=== PATIENT | female | born 1980 | race Caucasian/White ===

== ENCOUNTER 2020-06-01 09:30 | Outpatient (CLI) | payer OTHER, SELFPAY ==
--- NOTE | ~2020-06-01 | MM_ITS ---
EXAMINATION: MM screening [facility] BI w valeriy HISTORY: Screening TECHNIQUE: Craniocaudal and mediolateral oblique 3-D tomosynthesis images were obtained and synthetic 2-D images were generated. CAD analysis was submitted and interpreted. COMPARISON: Comparison to multiple prior studies sequentially, with oldest reviewed study dated 11/2018. BREAST PARENCHYMAL COMPOSITION: There are scattered areas of fibroglandular density. FINDINGS: There is no evidence of suspicious mass, calcification, or architectural distortion to sugg est malignancy in either breast. There has been no suspicious interval change. IMPRESSION: 1. No mammographic evidence of malignancy. 2. Recommend routine screening mammography in one year. BI-RADS Category 1: Negative Reviewed, dictated and finalized at location A.
== END 2020-06-01 09:31 | disposition home or self-care (01) ==
LOC: ANHIMG 09:37
PROVIDERS: PCP Family Medicine
DX: Z12.31 Encounter for screening mammogram for malignant neoplasm of breast (principal)
CPT/HCPCS: 77063; 77067

== ENCOUNTER 2021-06-03 10:15 | Outpatient (CLI) | payer OTHER, SELFPAY ==
--- NOTE | ~2021-06-03 | MM_ITS ---
EXAMINATION: MM screening [facility] BI w valeriy HISTORY: Screening TECHNIQUE: Craniocaudal and mediolateral oblique 3-D tomosynthesis images were obtained and synthetic 2-D images were generated. CAD analysis was submitted and interpreted. COMPARISON: Comparison to multiple prior studies sequentially, with oldest reviewed study dated 11/2018. BREAST PARENCHYMAL COMPOSITION: Breast composed of scattered areas of fibroglandular density FINDINGS: There is no evidence of suspicious mass, calcification, or architectural distortion to sugg est malignancy in either breast. There has been no suspicious interval change. IMPRESSION: 1. No mammographic evidence of malignancy. 2. Recommend routine screening mammography in one year. BI-RADS Category 1: Negative Reviewed, dictated and finalized at location A.
== END 2021-06-03 10:16 | disposition home or self-care (01) ==
LOC: ANHIMG 10:17
PROVIDERS: PCP Family Medicine; Visit Provider Family Medicine
DX: Z12.31 Encounter for screening mammogram for malignant neoplasm of breast (principal)
CPT/HCPCS: 77063; 77067

== ENCOUNTER 2022-07-20 09:40 | Outpatient (CLI) | payer OTHER, SELFPAY ==
--- NOTE | ~2022-07-20 | MM_ITS ---
EXAMINATION: MM screening [facility] BI w valeriy HISTORY: Screening mammogram TECHNIQUE: Craniocaudal and mediolateral oblique 3-D tomosynthesis images were obtained and synthetic 2-D images were generated. CAD analysis was submitted and interpreted. COMPARISON: 06/03/2021, 06/01/2020, 05/24/2019 bilateral screening mammogram examinations BREAST PARENCHYMAL COMPOSITION: There are scattered areas of fibroglandular density. FINDINGS: There is no evidence of suspicious mass, calcification, or architectural distortion to sugg est malignancy in either breast. There has been no suspicious interval change. IMPRESSION: 1. No mammographic evidence of malignancy. 2. Recommend routine screening mammography in one year. BI-RADS Category 1: Negative Reviewed, dictated and finalized at location A.
== END 2022-07-20 09:41 | disposition home or self-care (01) ==
DX: Z12.31 Encounter for screening mammogram for malignant neoplasm of breast (principal)
CPT/HCPCS: 77063; 77067

== ENCOUNTER 2023-08-28 13:29 | Outpatient (CLI) | payer OTHER, SELFPAY ==
--- NOTE | ~2023-08-28 | MM_ITS ---
EXAMINATION: MM screening [facility] BI w valeriy HISTORY: Screening TECHNIQUE: Craniocaudal and mediolateral oblique 3-D tomosynthesis images were obtained and synthetic 2-D images were generated. CAD analysis was submitted and interpreted. COMPARISON: Comparison to multiple prior studies sequentially, with oldest reviewed study dated 11/2018. BREAST PARENCHYMAL COMPOSITION: Breast composed of scattered areas of fibroglandular density FINDINGS: There is no evidence of suspicious mass, calcification, or architectural distortion to sugg est malignancy in either breast. There has been no suspicious interval change. IMPRESSION: 1. No mammographic evidence of malignancy. 2. Recommend routine screening mammography in one year. BI-RADS Category 1: Negative Reviewed, dictated and finalized at location A. 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
== END 2023-08-28 13:30 | disposition home or self-care (01) ==
LOC: ANHIMG 13:31
PROVIDERS: PCP Family Medicine; Visit Provider Family Medicine
DX: Z12.31 Encounter for screening mammogram for malignant neoplasm of breast (principal)
CPT/HCPCS: 77063; 77067

== ENCOUNTER 2024-10-03 14:31 | Outpatient (CLI) | payer OTHER, SELFPAY ==
--- NOTE | ~2024-10-03 | MM_ITS ---
EXAMINATION: MM screening [facility] BI w valeriy HISTORY: Screening TECHNIQUE: Craniocaudal and mediolateral oblique 3-D tomosynthesis images were obtained and synthetic 2-D images were generated. CAD analysis was submitted and interpreted. COMPARISON: Comparison to multiple prior studies sequentially, with oldest reviewed study dated 11/2018. BREAST PARENCHYMAL COMPOSITION: Not dense: There are scattered areas of fibroglandular density. FINDINGS: There is no evidence of suspicious mass, calcification, or architectural distortion to sugg est malignancy in either breast. There has been no suspicious interval change. IMPRESSION: 1. No mammographic evidence of malignancy. 2. Recommend routine screening mammography in one year. BI-RADS Category 1: Negative Reviewed, dictated and finalized at location B. 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
== END 2024-10-03 14:32 | disposition home or self-care (01) ==
PROVIDERS: PCP Family Medicine
DX: Z12.31 Encounter for screening mammogram for malignant neoplasm of breast (principal)
CPT/HCPCS: 77063; 77067

== ENCOUNTER 2025-10-07 08:51 | Outpatient (CLI) | payer MEDICAID, SELFPAY ==
--- NOTE | ~2025-10-07 | MM_ITS ---
EXAMINATION: MM screening liana BI w valeriy HISTORY: Screening TECHNIQUE: Craniocaudal and mediolateral oblique 3-D tomosynthesis images were obtained and synthetic 2-D images were generated. CAD analysis was submitted and interpreted. COMPARISON: Comparison to multiple prior studies sequentially, with oldest reviewed study dated , 06/01/2020 BREAST PARENCHYMAL COMPOSITION: Not Dense: There are scattered areas of fibroglandular density. FINDINGS: There is no evidence of suspicious mass, calcification, or architectural distortion to suggest malignancy in either breast. IMPRESSION: 1. No mammographic evidence of malignancy. 2. Recommend routine screening mammography in one year. BI-RADS Category 1: Negative Reviewed, dictated and finalized at location A. ICAL INFORMATICS PHYSICIAN
--- OUTSIDE RECORDS SUMMARY | 2025-10-07 09:35 | XMS_ITS | Clinical Summary ---
Author Organization [facility] [employer] Address [address] [place] [address] Care Team Providers Care Felt Hat Flanging Operator Name Role Phone Violeta Branham MD Primary Care Provider Source Comments [facility] [facility]non-owned Affiliates and Associated Physician Practices is amultiple site organization consisting of ambulatory clinics and hospital sitesin [place], [place] and [place]. This disclosure is being madepursuant to the Care Everywhere program and may not contain all information available regarding this patient. Last updated 18.[facility] [employer] Medications * Be aware that medications may not be up to date on this document. Alwaysverify current medications with the patient. ibuprofen (MOTRIN) 800 MG tablet Take 800 mg by mouth q6h PRN (Pain). 09/04/2016 Active cyclobenzaprine (FLEXERIL) 10 MG tablet Take 10 mg by mouth 3X/day PRN (Muscle Spasms). 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 Sexual Orientation Straight 11/01/2021 9: 38 AM ROUNDHOUSE FIRER/FIREMAN Last Filed Vital Signs Vital Sign Reading Time Taken Comments Blood Pressure 120/87 12/26/2016 9:58 AM ROUNDHOUSE FIRER/FIREMAN Pulse 73 12/26/2016 9:58 AM ROUNDHOUSE FIRER/FIREMAN Temperature 36.8 C (98.2 F) 09/04/2016 10:11 AM ROUNDHOUSE FIRER/FIREMAN Respiratory Rate 18 09/04/2016 10:11 AM ROUNDHOUSE FIRER/FIREMAN Oxygen Saturation 100% 09/04/2016 10:11 AM ROUNDHOUSE FIRER/FIREMAN Inhaled Oxygen Concentration - - Weight 90.7 kg (200 lb) 12/26/2016 9:58 AM ROUNDHOUSE FIRER/FIREMAN Height 157.5 cm (5' 2) 12/26/2016 9:58 AM ROUNDHOUSE FIRER/FIREMAN Body Mass Index 36.58 12/26/2016 9:58 AM ROUNDHOUSE FIRER/FIREMAN Plan of Treatment Health Maintenance Due Date Last Done Comments COLOGUARD (AGES 45-75) - COL ON CA SCREENING 1978 COLON MONITORING 1978 COLONOSCOPY - COLON CA SCREENING 1978 CT COLONOGRAPHY - COLON CA SCREENING 1978 Colorectal Cancer Screening 1978 FIT - COLON CA SCREENING 1978 FLEX SIG - COLON CA SCREENING 1978 LIPID TESTING 1978 MAMMOGRAM 1978 HIV SCREENING 1993 HEPATITIS C SCREENING 05/07/1996 DTAP/TDAP/TD VACCINES (1 - Tdap) 1997 HEPATITIS B VACCINE (1 of 3 - 19+ 3-dose series) 1997 DEPRESSION SCREENING 10/23/2024 COVID-19 VACCINE (1 - 2024-2 6 season) 2025 INFLUENZA VACCINE (#1) 2025 ZOSTER VACCINE (1 of 2) 2028 HIB VACCINE Aged Out No longer eligi ble based on patient's age to complete this topic HPV VACCINE Aged Out No longer eligi ble based on patient's age to complete this topic MENINGOCOCCAL (Group B) VACC INE SHARED DECISION-MAKING Aged Out No longer eligibl e based on patient's age to complete this topic MENINGOCOCCAL GROUPS A/C/Y/W VACCINE Aged Out No longer eligible b ased on patient's age to complete this topic PNEUMOCOCCAL VACCINE Aged Out No long er eligible based on patient's age to complete this topic Care Teams Felt Hat Flanging Operator Relationship Specialty Start Date End Date Violeta Branahm MD [address] [facility] [address] [place] [address] PCP - General 09/04/16
--- OUTSIDE RECORDS SUMMARY | 2025-10-07 09:35 | XMS_ITS | Encounter Summary ---
Author Organization [facility] Care Team Providers Care Coremaker Bench Name Role Phone Maryam Uribe MD Primary Care Provider [phone] Shraddha Bo Primary Care Provider + Kishor Padgett MD Primary Care Provider [phone] Janet Khan NP Primary Care Provider [phone] Encounter Details Date Type Department Care Team (Latest Contact Info) Description 04/07/2017 Orders Only [facility] CLINCONV ProviderChristiano MD [address] [place] [id number] Social History Tobacco Use Types Packs/Day Years Used Date Smoking Tobacco: Never Assessed Comments Unknown Sex and Gender Information Value Date Recorded Sex Assigned at Not on file 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
--- OUTSIDE RECORDS SUMMARY | 2025-10-07 09:35 | XMS_ITS | Clinical Summary ---
Author Organization [facility] Address [address] [place] [address] Care Team Providers Care Or Manager Name Role Phone Unavailable Primary Care Provider Unavailabl e Allergies No known active allergies Medications rizatriptan (MAXALT) 10 mg tabletIndications :Migraine Take 1 tablet (10 mg total) by mouth once as needed for migraine May repeat in 2 hours if unresolved. Do not exceed 30 mg in 24 hours. 9 tablet 1 10/05/20 23 Active topiramate (TOPAMAX) 50 mg tabletIndications :Migraine without aura and without status migrainosus, not intractable,Class 3 severe obesity due to excess calories without serious comorbidity with body mass index (BMI) of 40.0 to 44.9 in adult Take 1 tablet (50 mg total) by mouth 2 (two) times a day 60 tablet 11 09/26/20 24 Active promethazine (PHENERGAN) 1.25 mg/mL syrupIndications: Chronic cough Take 10 mL (12.5 mg total) by mouth 4 (four) times a day as needed for nausea or vomiting 120 mL 01/23/20 25 Active atorvastatin (LIPITOR) 10 mg tablet TAKE 1 TABLET(10 MG) BY MOUTH DAILY. 90 tablet 3 03/19/20 25 Active ondansetron ODT (ZOFRAN-ODT) 4 mg disintegrating tablet Take 1 tablet (4 mg total) by mouth every 8 (eight) hours as needed for nausea or vomiting 20 tablet 03/22/20 25 Active dicyclomine (BENTYL) 10 mg capsuleIndication s:Abdominal Pain with Cramps,Irritable Bowel Syndrome Take 1 capsule (10 mg total) by mouth 4 (four) times a day before meals and nightly for 20 doses 20 capsule 03/22/[address] (VOLTAREN) 75 mg EC tablet Take 1 tablet (75 mg total) by mouth 2 (two) times a day 03/03/20 25 Active phentermine (ADIPEX-P) 37.5 mg tabletIndications :Class 3 severe obesity due to excess calories without serious comorbidity with body mass index (BMI) of 40.0 to 44.9 in adult TAKE 1 TABLET(37.5 MG) BY MOUTH DAILY BEFORE BREAKFAST 30 tablet 09/25/20 25 Active phentermine (ADIPEX-P) 37.5 mg tabletIndications :Class 3 severe obesity due to excess calories without serious comorbidity with body mass index (BMI) of 40.0 to 44.9 in adult Take 1 tablet (37.5 mg total) by mouth daily before breakfast 30 tablet 11/28/19 25 025 Discontinued Hospital, Clinic, or Other Facility Administered Medication Ordered Dose Route Frequency Start Date End Date Status etonogestreL (NEXPLANON) implant 68 mgIndications:Pregna ncy Contraception 68 mg subderm Continuous (implanted device) 02/10/2025 02/10/2028 Active Active Problems Problem Noted Date Diagnosed Date Plantar fasciitis 05/28/2025 Chronic pain of left knee 04/15/2025 Stage 2 chronic kidney disease 04/01/2025 Slow transit constipation 03/25/2025 Leukocytosis 03/25/2025 Pain of left heel 02/06/2025 Assessment & Plan (02/06/2025 11:08 AM CDT): Xray left foot shows no acute malalignment or bone abnormalities/no acute fractures. It does show degenerative changes in the ankle along with chronic cortical irregularity of the inside of the ankle. Would recommend physical therapy and continued rest, ice, elevation, compression, and weight loss. May use Tylenol/Motrin for pain relief. Chronic cough 01/22/2025 Enlarged tonsils 02/06/2024 Assessment & Plan (02/06/2024 9:37 AM CDT): HPI: Condition is not at/near goal. Patient has always had issues with enlarged tonsils - she has seen ENT in the past where it was recommended that she get her tonsils removed but she never did due to current life stressors. She states she can feel her right tonsil touch when she swallows and sometimes has difficulty swallowing food and drink. Denies any fevers, sore throat, or cough. A&P: Referral has been placed for patient to see ENT. Precordial chest pain 11/15/2023 Abnormal EKG 11/15/2023 Syncope and collapse 11/15/2023 Fever 10/19/2023 Bronchitis 10/19/2023 Pharyngitis 10/19/2023 Nonvenomous insect bite of foot 10/13/2023 NOMI (generalized anxiety disorder) 10/04/2023 Assessment & Plan (09/26/2024 11:20 AM IS CONSULTANT): Patient reiterated no suicidal thoughts at this time; take medication as directed; contact 911 and go to the ER if becomes suicidal; discussed side effects of medication with patient; encouraged healthy diet and exericise; encouraged patient to see a counselor. HPI: Condition is stable. Doing well managing without medication. A&P:Will continue to monitor. Assessment & Plan (10/05/2023 10:48 AM IS CONSULTANT): Patient reiterated no suicidal thoughts at this time; take medication as directed; contact 911 and go to the ER if becomes suicidal; discussed side effects of medication with patient; encouraged healthy diet and exericise; encouraged patient to see a counselor. HPI: Condition is stable A&P: Discussed/ordered labs, encouraged healthy, low carbohydrate lifestyle and at least 150min/week of exercise. Will continue to monitor. Migraine without status migrainosus, not intract able 10/04/2023 Assessment & Plan (09/26/2024 11:21 AM IS CONSULTANT): HPI: Condition is stable. Few migraines recently. States she may have used the Maxalt once in the past month. Has been out of [email or web address] due to insurance problem that is now corrected - has not taken in 2 months. A&P: Restart Topiramate 25mg daily x 1 week, then 50 mg daily thereafter. Continue Rizatriptan 10 mg as needed for migraines. Discussed keeping headache diary. Discussed avoiding all caffeine: no soda, tea, coffee, chocolate; no wine; no sharp cheeses; no processed meats like hot dogs or bologna; no MSG as found in danish food; no more than 1/2 banana a day; no artificial sweeteners; fresh bread (less than 24 hours old). Avoid using tylenol, ibuprofen or aleve more than twice a week or else you can cause medication overuse/rebound headaches. You may be causing the headaches with the medications you are taking to get rid of them. Be sure to push lots of water as dehydration is a big cause of headaches. Assessment & Plan (06/13/2024 12:44 PM CDT): HPI: Condition is stable. Has had very few migraines recently. States she may have used the Maxalt once in the past month. A&P: Continue on topiramate 25mg twice daily and rizatriptan 10 mg as needed for migraines. Discussed keeping headache diary. Discussed avoiding all caffeine: no soda, tea, coffee, chocolate; no wine; no sharp cheeses; no processed meats like hot dogs or bologna; no MSG as found in danish food; no more than 1/2 banana a day; no artificial sweeteners; fresh bread (less than 24 hours old). Avoid using tylenol, ibuprofen or aleve more than twice a week or else you can cause medication overuse/rebound headaches. You may be causing the headaches with the medications you are taking to get rid of them. Be sure to push lots of water as dehydration is a big cause of headaches. Assessment & Plan (04/11/2024 11:02 AM CDT): HPI: Condition is stable. A&P: Continue on topiramate 25mg twice daily and rizatriptan 10 mg as needed for migraines. Discussed keeping headache diary. Discussed avoiding all caffeine: no soda, tea, coffee, chocolate; no wine; no sharp cheeses; no processed meats like hot dogs or bologna; no MSG as found in danish food; no more than 1/2 banana a day; no artificial sweeteners; fresh bread (less than 24 hours old). Avoid using tylenol, ibuprofen or aleve more than twice a week or else you can cause medication overuse/rebound headaches. You may be causing the headaches with the medications you are taking to get rid of them. Be sure to push lots of water as dehydration is a big cause of headaches. Assessment & Plan (02/06/2024 9:15 AM CDT): HPI: Condition is stable. A&P: Continue on rizatriptan 10 mg tablet as needed for migraines. Discussed keeping headache diary. Discussed avoiding all caffeine: no soda, tea, coffee, chocolate; no wine; no sharp cheeses; no processed meats like hot dogs or bologna; no MSG as found in danish food; no more than 1/2 banana a day; no artificial sweeteners; fresh bread (less than 24 hours old). Avoid using tylenol, ibuprofen or aleve more than twice a week or else you can cause medication overuse/rebound headaches. You may be causing the headaches with the medications you are taking to get rid of them. Be sure to push lots of water as dehydration is a big cause of headaches. Assessment & Plan (10/04/2023 8:40 PM IS CONSULTANT): HPI: Condition is stable A&P: Discussed/ordered labs, encouraged healthy, low carbohydrate lifestyle and at least 150min/week of exercise, continue on rizatriptan 10 mg tablet as needed for migraines. Discussed keeping headache diary. Discussed avoiding all caffeine: no soda, tea, coffee, chocolate; no wine; no sharp cheeses; no processed meats like hot dogs or bologna; no MSG as found in danish food; no more than 1/2 banana a day; no artificial sweeteners; fresh bread (less than 24 hours old). Avoid using tylenol, ibuprofen or aleve more than twice a week or else you can cause medication overuse/rebound headaches. You may be causing the headaches with the medications you are taking to get rid of them. Be sure to push lots of water as dehydration is a big cause of headaches. Class 3 severe obesity due t o excess calories without serious comorbidity with body mass index (BMI) of 40.0 to 44.9 in adult 04/20/2022 Assessment & Plan (01/22/2025 11:09 AM CDT): CHIP 5 completed today. Assessment & Plan (01/08/2025 11:52 AM CDT): CHIP 4 completed today. Assessment & Plan (11/28/2024 10:05 AM IS CONSULTANT): Chip 03 Patient has lost 20lb since starting Phentermine on 01/08/2024. She has been cutting back on regular soda and increasing her activity including walking on the treadmill. She has now noticed plateau with weight loss. Discontinued Phentermine 06/13/2024 for drug holiday. Will restart on Phentermine today (11/28/2024) per patient request. She will continue to do CHIP. Will discontinue around 02/25/2025. Visit began at 0916 Visit ended at 0950 Pre/post charting time - 10 minutes My total encounter time on 11/28/2024 was 44 minutes which was spent in the activities documented in the note. This includes time spent prior to the visit and after the visit in direct care of the patient. This time does not include time spent in any separately reportable services. Start Date: 11/07/2024 Start weight: 237 lb Weight today: 239 lb Total weight loss: + 2 lb Wt Readings from Last 3 Encounters: 11/28/24 108.4 kg (239 lb) 11/14/24 107.9 kg (237 lb 12.8 oz) 11/07/24 107.9 kg (237 lb 14.4 oz) Patient presents for weight loss education. Today we discussed basic habits of health, primary & secondary choices, structural tension, how habits are formed, cravings, and stopping bad habit patterns. Last visit goal: Start recording food diary up to 3 of the next 7 days using my fitness pal/note book focusing on protein and calorie goal. Goal was - MET Goal for next session:Continue tracking, restart Phentermine. Gratefulness: That she is still here today! TDEE calculated today: Total Daily Calories: 1500 calories/day Total Daily Protein: 150 grams protein/day Increase protein in diet. Examples: 1 whole egg and 2 servings of egg whites, protein supplement shakes, [employer] core power elite shake has 42 g of protein, the plan core power shakes have 26 g of protein, protein bars, protein:ratio yogurt, oikos pro yogur, or oikos triple zero yogurt with a scoop of protein powder, increased meat intake, low fat cottage cheese, collagen peptides-these can sometimes be used as a creamer in your coffee The 5 A's framework was used throughout the session BMI Follow-up includes: nutrition counseling, exercise counseling, and education provided. Assessment & Plan (11/14/2024 11:35 AM IS CONSULTANT): Akbar 02 Patient has lost 20lb since starting Phentermine on 01/08/2024. She has been cutting back on regular soda and increasing her activity including walking on the treadmill. She has now noticed plateau with weight loss. Discontinued Phentermine 06/13/2024 for drug holiday. Visit began at 1046 Visit ended at 1125 Pre/post charting time - 5 minutes My total encounter time on 11/14/2024 was 44 minutes which was spent in the activities documented in the note. This includes time spent prior to the visit and after the visit in direct care of the patient. This time does not include time spent in any separately reportable services. Start Date: 11/07/2024 Start weight: 237 lb Weight today: 237 lb Total weight loss: - 0 lb Wt Readings from Last 3 Encounters: 11/14/24 107.9 kg (237 lb 12.8 oz) 11/07/24 107.9 kg (237 lb 14.4 oz) 09/26/24 108.2 kg (238 lb 9.6 oz) Pt presents for weight loss education. Today we reviewed their health assessment and I gave suggestions and encouragement to improve. We discussed eating healthy basics- what is a calorie, metabolism, glucose/insulin response to eating, low glycemic eating, create your plate, non-starchy veggies, grains/starches, proteins/dairy, and foods to limit. We discussed 3 different diet plans including Weight Watchers, calorie counting or meal replacements. They will consider which plan will work best for them and let me know in the next week. TDEE calculated today: Total Daily Calories: 1500 calories/day Total Daily Protein: 150 grams protein/day Increase protein in diet. Examples: 1 whole egg and 2 servings of egg whites, protein supplement shakes, [employer] core power elite shake has 42 g of protein, the plan core power shakes have 26 g of protein, protein bars, protein:ratio yogurt, oikos pro yogur, or oikos triple zero yogurt with a scoop of protein powder, increased meat intake, low fat cottage cheese, collagen peptides-these can sometimes be used as a creamer in your coffee Last visit goal: High-protein breakfast within 2 hours of waking up prior to caffeine source (regular mountain dew). Attempt to try mountain dew 0 sugar. Goal was - MET Goal for next session: Start recording food diary up to 3 of the next 7 days using my fitness pal/note book focusing on protein and calorie goal. Gratefulness: Family and friends! The 5 A's framework was used throughout the session BMI Follow-up includes:nutrition counseling, exercise counseling, and education provided Assessment & Plan (11/07/2024 1:08 PM IS CONSULTANT): Chip 01 Patient has lost 20lb since starting Phentermine on 01/08/2024. She has been cutting back on regular soda and increasing her activity including walking on the treadmill. She has now noticed plateau with weight loss. Discontinued Phentermine 06/13/2024 for drug holiday. Visit began at 1234 Visit ended at 1303 Pre/post charting time - 10 minutes My total encounter time on 11/07/2024 was 41 minutes which was spent in the activities documented in the note. This includes time spent prior to the visit and after the visit in direct care of the patient. This time does not include time spent in any separately reportable services. Start Date: 11/07/2024 Start weight: 237 lb Pt presents for weight loss education. Today we discussed obesity statistics, causes, changes in food production, complications, brief goal setting, motivation, and created a structural tension chart. We discussed the BASIC lifestyle and they were given mealplans and snack ideas to use until their next visit. Their why: To be around for her family and grand baby, feel better/more energy, more confidence, healthier Motivation Score: 5 Goal for next session: High-protein breakfast within 2 hours of waking up prior to caffeine source (regular mountain dew). Attempt to try mountain dew 0 sugar. Increase protein in diet. Examples: 1 whole egg and 2 servings of egg whites, protein supplement shakes, [facility] core power elite shake has 42 g of protein, the plan core power shakes have 26 g of protein, protein bars, protein:ratio yogurt, oikos pro yogur, or oikos triple zero yogurt with a scoop of protein powder, increased meat intake, low fat cottage cheese, collagen peptides-these can sometimes be used as a creamer in your coffee The 5 A's framework was used throughout the session BMI Follow-up includes: nutrition counseling, exercise counseling, and education provided. Assessment & Plan (09/26/2024 11:08 AM IS CONSULTANT): HPI: Condition is improving, but not at goal. Goal BMI <30. Patient has lost 20lb since starting Phentermine on 01/08/2024. She has been cutting back on regular soda and increasing her activity including walking on the treadmill. She has now noticed plateau with weight loss. Discontinued Phentermine 06/13/2024 for drug holiday. A&P: Healthy, high-protein, lower carbohydrate, lower fat lifestyle and exercise for 150min/week recommended. Recommend and encourage her to do CHIP weight loss program with me and encouraged her to call and schedule apt. Assessment & Plan (06/13/2024 12:44 PM CDT): HPI: Condition is improving, but not at goal. Goal BMI <30. Patient has lost 20lb since starting on 01/08/2024. She has been cutting back on regular soda and increasing her activity including walking on the treadmill. She has now noticed plateau with weight loss. A&P: Healthy, high-protein, lower carbohydrate, lower fat lifestyle and exercise for 150min/week recommended. Will discontinue phentermine for drug holiday. Recommend and encourage her to do CHIP weight loss program with me and encouraged her to call and schedule apt. Assessment & Plan (04/11/2024 11:01 AM CDT): HPI: Condition is improving, but not at goal. Goal BMI <30. Patient has lost 20 lb since starting on 01/08/2024. She has been cutting back on regular soda and increasing her activity including walking on the treadmill. Today kumari 3 months on medication - she does report that she was off of it for over 2 weeks for her colonoscopy. Wt Readings from Last 48 Encounters: 04/11/24 102.1 kg (225 lb) 03/11/24 103.1 kg (227 lb 6.4 oz) 02/16/24 104.8 kg (231 lb) 02/06/24 106.5 kg (234 lb 12.8 oz) 01/08/24 111.5 kg (245 lb 14.4 oz) 11/15/23 110.7 kg (244 lb) 10/05/23 110.5 kg (243 lb 9.6 oz) 06/25/23 109.1 kg (240 lb 8.4 oz) 05/12/23 109.1 kg (240 lb 9.6 oz) 05/08/23 99.8 kg (220 lb) 02/14/23 109.3 kg (241 lb) 09/20/22 106.2 kg (234 lb 3.2 oz) 04/20/22 103.9 kg (229 lb) 04/12/22 103.9 kg (229 lb 0.9 oz) 02/15/22 99.8 kg (220 lb 0.3 oz) 11/15/21 97.1 kg (214 lb) 09/23/21 97.5 kg (215 lb) 09/20/21 97.2 kg (214 lb 3.2 oz) 07/29/21 95.9 kg (211 lb 6.4 oz) 06/24/21 95.8 kg (211 lb 1.6 oz) 05/27/21 95.8 kg (211 lb 4.8 oz) 05/07/21 92.3 kg (203 lb 7.8 oz) 03/18/21 94.6 kg (208 lb 9.6 oz) 09/24/20 89.2 kg (196 lb 9.6 oz) 06/18/20 87.2 kg (192 lb 3.2 oz) 03/25/20 89.4 kg (197 lb 3.2 oz) 05/22/17 90.7 kg (200 lb) 05/15/17 90.7 kg (200 lb) 05/08/17 90.7 kg (200 lb) 05/03/17 90.7 kg (200 lb) 05/01/17 90.7 kg (200 lb) 11/14/16 90.7 kg (200 lb) A&P: Healthy, high-protein, lower carbohydrate, lower fat lifestyle and exercise for 150min/week recommended. Patient continue phentermine 37.5 mg once daily for 1 more month. Will follow up in 1 month via telemed. Assessment & Plan (03/11/2024 8:44 AM CDT): HPI: Condition is improving, but not at goal. Goal BMI <30. Patient has lost 18 lb since starting on 01/08/2024. She has been cutting back on regular soda and increasing her activity including walking on the treadmill. Wt Readings from Last 48 Encounters: 03/11/24 103.1 kg (227 lb 6.4 oz) 02/16/24 104.8 kg (231 lb) 02/06/24 106.5 kg (234 lb 12.8 oz) 01/08/24 111.5 kg (245 lb 14.4 oz) 11/15/23 110.7 kg (244 lb) 10/05/23 110.5 kg (243 lb 9.6 oz) 06/25/23 109.1 kg (240 lb 8.4 oz) 05/12/23 109.1 kg (240 lb 9.6 oz) 05/08/23 99.8 kg (220 lb) 02/14/23 109.3 kg (241 lb) 09/20/22 106.2 kg (234 lb 3.2 oz) 04/20/22 103.9 kg (229 lb) 04/12/22 103.9 kg (229 lb 0.9 oz) 02/15/22 99.8 kg (220 lb 0.3 oz) 11/15/21 97.1 kg (214 lb) 09/23/21 97.5 kg (215 lb) 09/20/21 97.2 kg (214 lb 3.2 oz) 07/29/21 95.9 kg (211 lb 6.4 oz) 06/24/21 95.8 kg (211 lb 1.6 oz) 05/27/21 95.8 kg (211 lb 4.8 oz) 05/07/21 92.3 kg (203 lb 7.8 oz) 03/18/21 94.6 kg (208 lb 9.6 oz) 09/24/20 89.2 kg (196 lb 9.6 oz) 06/18/20 87.2 kg (192 lb 3.2 oz) 03/25/20 89.4 kg (197 lb 3.2 oz) 05/22/17 90.7 kg (200 lb) 05/15/17 90.7 kg (200 lb) 05/08/17 90.7 kg (200 lb) 05/03/17 90.7 kg (200 lb) 05/01/17 90.7 kg (200 lb) 11/14/16 90.7 kg (200 lb) A&P: Healthy, high-protein, lower carbohydrate, lower fat lifestyle and exercise for 150min/week recommended. Continue phentermine 37.5 mg once daily and topiramate 25 mg tablet twice daily. We will follow up in 1 month via telemedicine to check in on weight loss in progress at the three-month mary. We prescribed Phentermine today. This medication may cause anxiety, palpitations, dry mouth, dizziness, jitteriness, or insomnia. It could cause dependence if abused. Be sure to take it early in the day. If your blood pressure becomes elevated or you reach a BMI of 21, it will be discontinued. Do not share your medication with anyone else or combine with alcohol. We do require you come in monthly for weight loss visits with a log of your eating and exercise on most days. You can log on [employer], another [employer], or on paper. Assessment & Plan (02/06/2024 9:19 AM CDT): HPI: Condition is improving, but not at goal. Goal BMI <30. Patient has lost 11 lb since being on phentermine. Patient has been cutting back on regular soda and increasing water. A&P: Healthy, high-protein, lower carbohydrate, lower fat lifestyle and exercise for 150min/week recommended. Continue phentermine 37.5 mg once daily and topiramate 25 mg tablet twice daily. We prescribed Phentermine today. This medication may cause anxiety, palpitations, dry mouth, dizziness, jitteriness, or insomnia. It could cause dependence if abused. Be sure to take it early in the day. If your blood pressure becomes elevated or you reach a BMI of 21, it will be discontinued. Do not share your medication with anyone else or combine with alcohol. We do require you come in monthly for weight loss visits with a log of your eating and exercise on most days. You can log on [employer], another [employer], or on paper. Assessment & Plan (01/08/2024 9:59 AM CDT): HPI: Condition is stable. Goal BMI <30. Patient reports that she is interested in trying to lose weight and states that a couple years ago she had been on phentermine which helped her lose 20+ lb. A&P: Healthy, high-protein, lower carbohydrate, lower fat lifestyle and exercise for 150min/week recommended. We will send in phentermine 37.5 mg to take once daily and topiramate 25 mg tablet twice daily. We prescribed Phentermine today. This medication may cause anxiety, palpitations, dry mouth, dizziness, jitteriness, or insomnia. It could cause dependence if abused. Be sure to take it early in the day. If your blood pressure becomes elevated or you reach a BMI of 21, it will be discontinued. Do not share your medication with anyone else or combine with alcohol. We do require you come in monthly for weight loss visits with a log of your eating and exercise on most days. You can log on [employer], another [employer], or on paper. Assessment & Plan (10/04/2023 8:34 PM IS CONSULTANT): HPI: Condition is not at/near goal goal BMI <30 A&P: Healthy, high-protein, lower carbohydrate, lower fat lifestyle and exercise for 150min/week recommended. Assessment & Plan (09/20/2022 9:35 AM IS CONSULTANT): Working on weight loss Assessment & Plan (04/20/2022 8:41 AM CDT): Restart phentermine Mixed hyperlipidemia 03/25/2020 Assessment & Plan (09/26/2024 11:09 AM IS CONSULTANT): HPI: Condition is improving. Started Atorvastatin 10 mg 10/04/2023. Lab Results Component Value Date TRIG 79 04/20/2024 TRIG 96 12/11/2023 HDL 50 04/20/2024 HDL 48 12/11/2023 LDLCALC 101 04/20/2024 LDLCALC 100 12/11/2023 NONHDLCHOL 117 04/20/2024 NONHDLCHOL 119 12/11/2023 A&P: Discussed/ordered labs. Recommend low-fat diet & increased activity. Continue Atorvastatin 10 mg nightly. Assessment & Plan (04/11/2024 10:40 AM CDT): HPI: Condition is improving. Started patient on atorvastatin 10 mg on 10/04/2023. Lab Results Component Value Date TRIG 96 12/11/2023 TRIG 129 09/25/2023 HDL 48 12/11/2023 HDL 54 09/25/2023 LDLCALC 100 12/11/2023 LDLCALC 132 (H) 09/25/2023 NONHDLCHOL 119 12/11/2023 NONHDLCHOL 158 09/25/2023 A&P: Discussed/ordered labs. Recommend low-fat diet & increased activity. Continue on atorvastatin 10 mg nightly. Assessment & Plan (02/06/2024 9:16 AM CDT): HPI: Condition is improving. Have started patient on atorvastatin 10 mg daily on 10/04/2023. Lab Results Component Value Date TRIG 96 12/11/2023 TRIG 129 09/25/2023 HDL 48 12/11/2023 HDL 54 09/25/2023 LDLCALC 100 12/11/2023 LDLCALC 132 (H) 09/25/2023 NONHDLCHOL 119 12/11/2023 NONHDLCHOL 158 09/25/2023 A&P: Discussed/ordered labs. Recommend low-fat diet & increased activity. Continue on atorvastatin 10 mg daily. Assessment & Plan (10/04/2023 8:38 PM IS CONSULTANT): HPI: Condition is not at/near goal. Last lipid panel reviewed 09/25/2023: Triglycerides (fatty chol) normal <150, your results 129 HDL (good chol) normal >45 male and >55 female, your results 54 LDL (bad chol) normal <100, your results 132 non-HDL (risk factor) normal <100, your results 158 A&P: Discussed/ordered labs, encouraged healthy, low carbohydrate lifestyle and at least 150min/week of exercise. Please begin taking atorvastatin 10 mg tablet once daily. Repeat lipid panel ordered for 6 months. Assessment & Plan (09/20/2021 9:57 AM IS CONSULTANT): Low ASCVD risk score - discussed diet/exercise, weight loss Assessment & Plan (03/18/2021 1:37 PM CDT): Stable, no changes. Continue current regimen with diet/exercise Repeat labs 6 months Assessment & Plan (03/25/2020 11:33 AM CDT): Repeat labs Resolved Problems Problem Noted Date Diagnosed Date Resolved Date Acute pain of both wrists 12/12/2022 Abnormal weight gain 07/29/2021 023 Assessment & Plan (07/29/2021 11:58 AM CDT): Overall Condition Chronic Condition: Uncontrolled. Treatment: Recommended Therapeutic Lifestyle Modification and Medication Changes: Increase phentermine twice a day. Follow up in 3 months Right forearm pain 06/02/2021 Overview (06/02/2021): Swelling and pain with no injury. Xrays reviewed. Refer to ortho Lateral epicondylitis of right elbow 06/02/2021 10/04/2023 Class 2 obesity due to exces s calories without serious comorbidity with body mass index (BMI) of 39.0 to 39.9 in adult 03/25/2020 Assessment & Plan (09/20/2021 9:57 AM IS CONSULTANT): On phentermine per weight loss specialist Assessment & Plan (03/25/2020 9:40 AM CDT): BMI Follow-up includes: nutrition counseling, exercise counseling and education provided. Seeing specialist - on meds Immunizations Immunization Administration Dates Next Due Influenza, Unspecified 06/23/2024(Deferr ed: Patient Refused),06/23/2024(Deferred: Patient decision),06/23/2024(Deferred: Patient decision),01/08/2024(Deferred: Patient decision),06/23/2023,09/20/2022(Deferre d: Patient Refused),09/20/2021(Deferred: Patient Refused),09/24/2020(Deferred: Patient Refused),07/23/2019(Deferred: Patient Refused) Moderna SARS-CoV-2 Monovalen t Vaccination (12+ YRS) 03/02/2021,02/02/2021 Tdap 07/25/2019 Surgical History Surgery Date Site/Laterality Comments CARPAL TUNNEL RELEASE 10/23/2017 - 10/22/2018 Medical History Medical History Date Comments Abnormal Pap smear of cervix Chest pain Hyperlipidemia Abnormal EKG Migraines Family History Medical History Relation Name Comments Liver disease Father Cancer Maternal Grandmother Allie bang Hyperlipidemia Maternal Grandmother Allie bang Hypertension Maternal Grandmother Allie bang brain tumor Maternal Grandmother Allie bang No Known Problems Mother Stroke Mother's Sister Elenita pino No Known Problems Sister Breast cancer Neg Hx Ovarian cancer Neg Hx Uterine cancer Neg Hx Relation Name Status Comments Father Maternal Grandfather Maternal Grandmother Allie bang Mother Alive Mother's Sister Elenita pino Paternal Grandfather Paternal Grandmother Sister Alive Social History Tobacco Use Types Packs/Day Years Used Date Smoking Tobacco: Never Smokeless Tobacco: Never Alcohol Use Standard Drinks/Week Comments Yes 1 (1 standard drink = 0.6 oz pur e alcohol) occasionally AUDIT-C Answer Date Recorded Q1: How often do you have a drink containing alcohol? Never 11/28/2024 Q2: How many drinks containi ng alcohol do you have on a typical day when you are drinking? Patient does not drink Q3: How often do you have si x or more drinks on one occasion? Never 11/28/2024 PHQ-2 Answer Date Recorded PHQ-2 Total Score (If total score is 3 or more points, staff should administer the PHQ-9) 0 01/08/2025 Personal Safety Answer Date Recorded Have you ever been in or are you currently in a harmful physical or emotional relationship or is someone making you feel afraid or unsafe? Denies 03/22/2025 Comments No Sex and Gender Information Value Date Recorded Sex Assigned at Not on file Legal Sex Female 6:40 PM IS CONSULTANT Gender Identity Female 03/18/2021 9:27 AM CDT Sexual Orientation Straight 03/18/2021 9: 27 AM CDT Obstetrics History Para Term AB IAB SAB Ectopic Multiple Livin g Live Births 2 2 2 2 2 Date Outcome GA Total Labor Labor/2nd/3rd Weight Sex Type Anes PTL Leanna A1 A5 Name Clin 1997 Term F Vag-S pont Living 2009 Term M Vag-S pont Living Comments Last Filed Vital Signs Vital Sign Reading Time Taken Comments Blood Pressure 122/82 07/01/2025 8:54 AM CDT Pulse 86 07/01/2025 8:54 AM CDT Temperature 36.8 C (98.2 F) 03/22/2025 7:13 AM CDT Respiratory Rate 16 07/01/2025 8:54 AM CDT Oxygen Saturation 98% 07/01/2025 8:54 AM CDT Inhaled Oxygen Concentration - - Weight 104.1 kg (229 lb 6.4 oz) 07/01/2025 8:54 AM CDT Height 157.5 cm (5' 2.01) 07/01/2025 8:54 AM CD T Body Mass Index 41.95 07/01/2025 8:54 AM CDT Plan of Treatment Health Maintenance Due Date Last Done Comments Hepatitis B Screening 1996 Covid-19 Vaccine ( season) 2025 10/29/2021, 03/02/2021, 02/02/2021 Influenza Vaccine (#1) 2025 06/23/2023 Breast Cancer Screening-Mammogram 10/03/2025 10/03/2024, 08/28/2023, 07/20/2022, Additional history exists Cervical Cancer Screening 12/18/2025 12/18/2024, Depression Screening 01/08/2026 01/08/2025, 01/08/2024, 02/14/2023, Additional history exists Regular Well Visit/Exam 18-64 04/01/2026 04/01/2025, 12/18/2024, 01/08/2024, Additional history exists DTaP/Tdap/Td Vaccine (2 - Td or Tdap) 07/25/2029 07/25/2019 Colon Cancer Screening-Colonoscopy 04/08/2034 04/08/2024 Hepatitis C Screening Completed 03/22/2025 Pneumococcal vaccine <65 Aged Out No longer eligible based on patient's age to complete this topic Procedures Procedure Name Priority Date/Time Associated Diagnosis Comments HEPATITIS C ANTIBODY Routine 03/22/2025 7:10 AM CDT Encounter for hepatitis C screening test for low risk patient HIGH RISK HPV DNA DETECTION WITH GENOTYPING Routine 12/18/2024 9:35 AM IS CONSULTANT Well woman exam SCREENING MAMMOGRAM Schedule Routine, Read Routine (OP Routine) 10/03/2024 COLONOSCOPY Routine 04/08/2024 from Last 3 Months or Most Recently Relevant to Health Maintenance Results * Hepatitis C antibody Blood (03/22/2025 7:10 AM CDT) Hep C Ab Nonreactive Nonreactive Comment: Antibodies to HCV not detected. Does NOT exclude the possibility of recent exposure to HCV. Current interpretive data was last revised on 22 Interpretive Data Nonreactive: Antibodies to HCV not detected. Does NOT exclude the possibility of recent exposure to HCV. Equivocal: Equivocal for HCV antibodies. Supplemental molecular testing will be automatically performed to determine infection status in accordance with current CDC screening recommendations. Reactive: Positive for HCV antibodies. This may represent current or past HCV infection. Supplemental molecular testing will be automatically performed to determine current infection status in accordance with current CDC screening recommendations. Interpretive data was last revised on 2020. Blood 03/22/2025 7:10 AM CDT 03/22/2025 7:14 AM CDT us Janet Khan NP LAB MICROBIOLOGY - GENERAL OR DERABLES Final Result [facility] [address] [facility] Department [place] [address] * High Risk HPV DNA Detection with Genotyping (Molecular component) (12/18/2024 9:35 AM IS CONSULTANT) HPV HR 16 Not Detected Not Detected [facility] Comment:Testing performed by : [facility], [address] [facility], [id number] HPV HR 18 Not Detected Not Detected [facility] Comment:Testing performed by : [facility], [address] [facility], [id number] HPV HR Non 16/18 Not Detected Not Detected [facility] Comment: Interpretive Data Nucleic acid amplification for detection of high-risk Human Papilloma virus (HPV) is performed by the Alize Adiel 6800 HPV test. This assay specifically detects HPV-16 and HPV-18 genotypes. The following HPV genotypes are detected as high-risk HPV: HPV-31, 33, 35, ,39, 45, 51, 52, 56, 58, 59, 66, and 68. This assay has been approved by the [place] Food and Drug Administration for detection of HPV in cervical specimens collected by a physician using an endocervical brush/spatula or cervical broom and placed in the ThinPrep Pap Test PreservCyt collection containers. The performance characteristics of this test have been verified by the [facility] Molecular Infectious Disease laboratory. Correlate with separately reported cytology results, as applicable. Interpretive data last revised 23 Testing performed by: [facility], [address] [facility], [id number] Endocervical 12/18/2024 9:35 AM IS CONSULTANT 12/19/2024 10:32 AM IS CONSULTANT Narrative [facility] - 12/19/2024 8:46 PM IS CONSULTANT Clinical history and diagnosis->screening Testing type->Screening Last menstrual period (date if known)->implant Vivi Gerber MD LAB BODY FLUIDS AND STOOL S ORDERABLES Final Result [facility] Department [place] [address] [facility] * Screening Mammogram (10/03/2024) Anatomical Region Laterality Modality Breast N/A Mammography us Historical Provider IMG MAMMO PROCEDURES [facility] Result * Colonoscopy (04/08/2024) Anatomical Region Laterality Modality Other us Historical Provider ENDOSCOPY PROCEDURES [facility] Result from Last 3 Months or Most Recently Relevant to Health Maintenance Insurance [facility]
--- OUTSIDE RECORDS SUMMARY | 2025-10-07 09:35 | XMS_ITS | Encounter Summary ---
Author Organization [facility] Facility Care Team Providers Care [employer] Engineer Sergeant Name Role Phone Maryam Uribe MD Primary Care Provider [phone] Shraddha Bo Primary Care Provider + Kishor Padgett MD Primary Care Provider [phone] Janet Khan NP Primary Care Provider Encounter Details Date Type Department Care Team (Latest Contact Info) Description 08/11/2017 Orders Only [facility] CLINCONV ProviderChristiano MD [address] [place] [id number] Social History Tobacco Use Types Packs/Day Years Used Date Smoking Tobacco: Never Assessed Comments Unknown Sex and Gender Information Value Date Recorded Sex Assigned at Not on file Legal Sex Female 6:40 PM RESIDENTIAL ADVISOR Gender Identity Female 03/18/2021 9:27 AM CDT Sexual Orientation Straight 03/18/2021 9: 27 AM CDT documented as of this encounter Plan of Treatment Not on file documented as of this encounter Procedures Procedure Name Priority Date/Time Associated Diagnosis Comments PROCEDURE - RESULT 08/03/2017 12 :00 AM CDT documented in this encounter Results * PROCEDURE - RESULT (08/03/2017 12:00 AM CDT) Narrative 08/03/2017 12:00 AM CDT Ordered by an unspecified provider. 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 [address] [address] [place] [id number] PCP - General Family Medicine 10/04/23 08/21/25 documented as of this encounter
--- OUTSIDE RECORDS SUMMARY | 2025-10-07 09:35 | XMS_ITS | Clinical Summary ---
Author Organization [employer] & [facility] Address [address] [place] [address] Care Team Providers Care Independent Trader Name Role Phone Pcp, Umm Primary Care Provider [phone] Social History Tobacco Use Types Packs/Day Years Used Date Smoking Tobacco: Never Assessed Comments Unknown Sex and Gender Information Value Date Recorded Sex Assigned at Not on file Legal Sex Female 7:56 PM EST Gender Identity Not on file Sexual Orientation Not on file Plan of Treatment Not on file Medical Devices Not on file Care Teams Independent Trader Relationship Specialty Start Date End Date Umm Kolb PCP - General Family Medicine 10/12/20
== END 2025-10-07 08:52 | disposition home or self-care (01) ==
PROVIDERS: PCP Family Medicine; Visit Provider Family Medicine
DX: Z12.31 Encounter for screening mammogram for malignant neoplasm of breast (principal)
CPT/HCPCS: 77063; 77067